=== PATIENT | male | born 1975 | race Caucasian/White ===

== ENCOUNTER 2024-01-01 16:52 | Emergency (ER) | payer SELFPAY ==
[~2024-01-01] VITALS: Ht 165.1 cm; Wt 65.0 kg
[2024-01-01 17:06] VITALS: BP 106/71; PULSE 77; RESP 20; TEMP 98.3; O2SAT 99
[2024-01-01] MEDS ORDERED: FOLIC ACID 1 MG, THIAMINE HCL 500 MG, MVI, ADULT NO.1 10 ML in DEXTROSE 5% WATER 1,000 ML IV ONE (17:30)
[2024-01-01] MEDS: MAGNESIUM/ALUMINUM HYDROXIDE/SIMETHICONE 30ML UDC PO STA (17:39)
[2024-01-01] MEDS: FAMOTIDINE 20MG/2ML VIAL IV STA (17:39)
[2024-01-01 17:46] LABS: BASOPHILS % 2.1 % (0.0-2.0); DIFFERENTIAL COMMENT 1; EOSINOPHILS % 2.3 % (0.0-5.0); HEMATOCRIT. 32.8 % (42.0-52.0); HEMOGLOBIN. 9.9 g/dL (14.0-18.0); LYMPHOCYTES % 51.9 % (20.0-50.0); MEAN CORPUSCULAR HEMOGLOBIN 21.5 pg (28.0-32.0); MEAN CORPUSCULAR HGB CONC 30.2 g/dL (31.0-37.0); MEAN PLATELET VOLUME 8.5 fl (7.4-10.4); MONOCYTES % 6.1 % (2.0-8.0); NEUTROPHILS % 37.6 % (40.0-76.0); PLATELET 216 x1000/uL (130-400); RED BLOOD CELL COUNT 4.62 mill/uL (4.7-6.1); RED CELL DISTRIBUTION WIDTH 23.6 % (11.6-14.6); WHITE BLOOD COUNT 3.6 x1000/uL (4.5-11.0)
[2024-01-01 17:47] LABS: ADD RBC MORPHOLOGY YES
[2024-01-01 17:51] LABS: CHLORIDE 109 mEq/L (98-107); POTASSIUM 3.6 mEq/L (3.5-5.1); SODIUM 147 mEq/L (136-145)
[2024-01-01 17:52] LABS: CALCIUM 8.7 mg/dL (8.7-10.4); CARBON DIOXIDE 29 mEq/L (21-32)
[2024-01-01 17:57] LABS: CREATININE 0.5 mg/dL (0.6-1.3); GLUCOSE 98 mg/dL (70-105)
[2024-01-01 17:59] LABS: ALANINE AMINOTRANSFERASE 38 IU/L (10-49); ALBUMIN 4.4 g/dL (3.2-4.8); ASPARTATE AMINOTRANSFERASE 86 IU/L (<34); BILIRUBIN DIRECT 0.1 mg/dL (<=3.0); BILIRUBIN TOTAL 0.4 mg/dL (0.1-1.0); HYPOCHROMASIA 1+; MICROCYTOSIS 2+; PLATELET ESTIMATE NORMAL; PROTEIN TOTAL 7.6 g/dL (6.0-8.3)
[2024-01-01 18:01] LABS: UREA NITROGEN BLOOD < 5 mg/dL (9-23)
[2024-01-01] MEDS: THIAMINE HCL IV NR (18:59)
[2024-01-01] MEDS: SODIUM CHLORIDE 0.9% IV NR (18:59)
[2024-01-01] MEDS ORDERED: FOLIC ACID 1 MG, THIAMINE HCL 100 MG, MVI, ADULT NO.1 10 ML in SODIUM CHLORIDE 0.9% 1,0... IV NR (20:00)
== END 2024-01-01 20:29 | disposition home or self-care (01) ==
LOC: ER 16:52
DX: K29.20 Alcoholic gastritis without bleeding (principal); F10.10 Alcohol abuse, uncomplicated; Y90.9 Presence of alcohol in blood, level not specified
CPT/HCPCS: 80076; 80048; 83690; 85025; 36415; 96365; 96375; 99284; J3490; J3411; J7050; Z7610 ×2; J7030; J7070